=== PATIENT | male | born 2000 | race Two or more races ===

== ENCOUNTER 2025-01-15 19:52 | Emergency (ER) | payer OTHER ==
[~2025-01-15] VITALS: Ht 172.7 cm; Wt 74.8 kg
[2025-01-15] MEDS ORDERED: TETANUS & DIPHTHERIA TOX,ADULT 0.5 ML VIAL IM ONE (21:00)
[2025-01-15] MEDS ORDERED: LIDOCAINE HCL 1% 10ML VIAL ONE (21:05)
[2025-01-15] MEDS ORDERED: CEFTRIAXONE SODIUM 1,000 MG VIAL ONE (21:05)
[2025-01-15] MEDS ORDERED: DIPHTH,PERTUSS(ACELL),TET VAC 0.5 ML SYRINGE IM ONE (21:06)
[2025-01-15] MEDS ORDERED: LIDOCAINE HCL 1% 10ML VIAL PERCUT ONE (21:15)
[2025-01-15] MEDS ORDERED: CEFTRIAXONE SODIUM 1,000 MG VIAL IV ONE (21:15)
[2025-01-15 21:32] LABS: HEMATOCRIT 44.8 % (39.0-48.0); HEMOGLOBIN 15.4 g/dL (13-16.00); MEAN CELL VOLUME 89.5 fL (80.0-100.00); MEAN CORPUSCULAR HEMOGLOBIN 30.7 pg (27.00-32.0); MEAN CORPUSCULAR HGB CONC 34.3 g/dl (32.0-36.0); PLATELET COUNT 330 K/uL (150-450); RED CELL DISTRIBUTION WIDTH 13.5 % (11.5-14.5)
[2025-01-15 21:56] LABS: ALBUMIN 4.5 gm/dL (3.4-5.0); BILIRUBIN TOTAL 0.24 mg/dL (0.3-1.2); CREATININE SERUM 0.92 mg/dL (0.70-1.30); GFR 102.87; GLOBULINA 3.9 G/DL (2.4-3.5); POTASSIUM 3.89 mEq/L (3.5-5.1); TOTAL PROTEIN 8.4 gm/dL (6.4-8.2)
== END 2025-01-16 01:35 | disposition home or self-care (01) ==
LOC: ER 20:13
PROVIDERS: General Practice
DX: S41.112A Laceration without foreign body of left upper arm, initial encounter (principal); X83.8XXA Intentional self-harm by other specified means, initial encounter; Y93.89 Activity, other specified; Y92.89 Other specified places as the place of occurrence of the external cause; Y99.8 Other external cause status
CPT/HCPCS: 12001; 36415; 73201; 90471; 90714; J1670; Q9965